=== PATIENT | female | born 1990 | race Caucasian/White ===

== ENCOUNTER 2019-11-14 22:24 | Emergency (ER) | payer MEDICAID ==
[~2019-11-14] VITALS: Ht 172.7 cm; Wt 72.0 kg
[~2019-11-14 22:24] MED LIST: IBUP-1573 PO
[2019-11-14] MEDS ORDERED: CEPH250T PO (23:02)
[2019-11-14 23:11] VITALS: BP 120/78
== END 2019-11-14 23:13 | disposition home or self-care (01) ==
LOC: ER 22:25
DX: L02.413 Cutaneous abscess of right upper limb (principal); F12.90 Cannabis use, unspecified, uncomplicated; F10.99 Alcohol use, unspecified with unspecified alcohol-induced disorder; Z88.8 Allergy status to other drugs, medicaments and biological substances; Z79.899 Other long term (current) drug therapy; Y90.9 Presence of alcohol in blood, level not specified
CPT/HCPCS: 99283

== ENCOUNTER 2020-02-11 14:35 | Emergency (ER) | payer MEDICAID ==
[~2020-02-11] VITALS: Ht 172.7 cm; Wt 77.3 kg
[2020-02-11 14:57] VITALS: BP 133/71
[2020-02-11] MEDS ORDERED: AMOX-422 PO (15:27)
== END 2020-02-11 15:43 | disposition home or self-care (01) ==
LOC: ER 14:36
DX: J32.9 Chronic sinusitis, unspecified (principal); J01.90 Acute sinusitis, unspecified; F12.90 Cannabis use, unspecified, uncomplicated; Z98.890 Other specified postprocedural states; Z88.8 Allergy status to other drugs, medicaments and biological substances; Z79.2 Long term (current) use of antibiotics; Z79.899 Other long term (current) drug therapy
CPT/HCPCS: 99283

== ENCOUNTER 2020-07-25 22:02 | Emergency (ER) | payer MEDICAID ==
[~2020-07-25] VITALS: Ht 172.7 cm; Wt 77.5 kg
[2020-07-25 22:07] VITALS: BP 126/83
[2020-07-25] MEDS ORDERED: NAPR-56 PO (22:26)
[2020-07-25] MEDS ORDERED: PENI250T2 PO (22:26)
[2020-07-25] MEDS ORDERED: naproxen 500mg tablet PO ONE (22:50)
== END 2020-07-25 22:48 | disposition home or self-care (01) ==
LOC: ER 22:03
DX: K08.89 Other specified disorders of teeth and supporting structures (principal); R22.0 Localized swelling, mass and lump, head; K13.79 Other lesions of oral mucosa; F12.90 Cannabis use, unspecified, uncomplicated; Z72.89 Other problems related to lifestyle; Z98.890 Other specified postprocedural states; Z88.8 Allergy status to other drugs, medicaments and biological substances; Z79.2 Long term (current) use of antibiotics; Z79.899 Other long term (current) drug therapy
CPT/HCPCS: 99283

== ENCOUNTER 2023-10-11 13:20 | Emergency (ER) | payer MEDICAID ==
[~2023-10-11] VITALS: Ht 172.7 cm; Wt 76.5 kg
[2023-10-11 13:36] VITALS: BP 122/77; PULSE 107; RESP 16; TEMP 98.7; O2SAT 99
[2023-10-11] MEDS ORDERED: SULF1TAB45 PO (14:41)
== END 2023-10-11 14:54 | disposition home or self-care (01) ==
LOC: ER 13:21
DX: L03.114 Cellulitis of left upper limb (principal); L03.116 Cellulitis of left lower limb; F12.10 Cannabis abuse, uncomplicated; Z88.8 Allergy status to other drugs, medicaments and biological substances; Z79.899 Other long term (current) drug therapy
CPT/HCPCS: 99283

== ENCOUNTER 2023-10-14 21:50 | Emergency (ER) | payer MEDICAID ==
[~2023-10-14] VITALS: Ht 172.7 cm; Wt 75.4 kg
[~2023-10-14 21:50] MED LIST changes: +SULF1TAB45 PO
[2023-10-14 21:54] VITALS: BP 127/90; PULSE 92; RESP 18; TEMP 97.8; O2SAT 100
[2023-10-14] MEDS ORDERED: LIDOcaine 1% W/epiNEPHrine 1:100,000 20ml vial SQ ONE (22:25)
[2023-10-14] MEDS ORDERED: LIDOCAINE 1%/EPI 1:100,000 inj. 10 ML multi-dose vial SQ ONE (22:30)
[2023-10-14] MEDS ORDERED: LORazepam 1 MG tablet PO ONE (22:50)
== END 2023-10-15 01:18 | disposition left against medical advice (07) ==
LOC: ER 21:50
DX: L02.214 Cutaneous abscess of groin (principal); F12.90 Cannabis use, unspecified, uncomplicated; Z88.8 Allergy status to other drugs, medicaments and biological substances; Z79.2 Long term (current) use of antibiotics
CPT/HCPCS: 76942; 99284; A6449